=== PATIENT | female | born 1940 | race Caucasian/White ===

== ENCOUNTER → 2017-03-15 | Outpatient (CLI) | payer OTHER | LOC: FIMAGING 12:52 | PROVIDERS: ATTEND Family Medicine | DX: Z12.31 Encounter for screening mammogram for malignant neoplasm of breast (principal) | CPT/HCPCS: G0202 ==

== ENCOUNTER → 2017-11-12 | Outpatient (CLI) | payer OTHER | LOC: FIMAGING 12:55 | PROVIDERS: ATTEND Family Medicine | DX: M25.562 Pain in left knee (principal) ==

== ENCOUNTER → 2017-11-25 | Outpatient (CLI) | payer OTHER | LOC: BMCIMAGING 17:07 | PROVIDERS: ATTEND Family Medicine | DX: M25.461 Effusion, right knee (principal) ==

== ENCOUNTER → 2017-11-27 | Outpatient (CLI) | payer OTHER | LOC: FIMAGING 09:24 | PROVIDERS: ATTEND Family Medicine | DX: M25.562 Pain in left knee (principal); M25.561 Pain in right knee; M23.242 Derangement of anterior horn of lateral meniscus due to old tear or injury, left knee; M22.42 Chondromalacia patellae, left knee; M23.42 Loose body in knee, left knee; R93.6 Abnormal findings on diagnostic imaging of limbs; S72.431A Displaced fracture of medial condyle of right femur, initial encounter for closed fracture; S83.241A Other tear of medial meniscus, current injury, right knee, initial encounter; M25.461 Effusion, right knee; M22.41 Chondromalacia patellae, right knee; S76.001A Unspecified injury of muscle, fascia and tendon of right hip, initial encounter ==

== ENCOUNTER → 2018-03-17 | Outpatient (CLI) | payer OTHER | LOC: FIMAGING 11:24 | PROVIDERS: ATTEND Family Medicine | DX: Z12.31 Encounter for screening mammogram for malignant neoplasm of breast (principal) ==